=== PATIENT | female | born 1955 | race Two or more races ===

== ENCOUNTER 2020-09-25 06:30 | Day surgery (SDC) | payer OTHER ==
[~2020-09-25 06:30] MED LIST: ANASTROZOLE1 MG PO; CRESTOR10 MG PO; NORVASC5 MG PO; SYNTH PO; SYNTHROID100 MCG PO
== END 2020-09-25 17:25 | disposition home or self-care (01) ==
LOC: CIR.AMB 06:30
PROVIDERS: ATTEND Surgery
DX: D05.01 Lobular carcinoma in situ of right breast (principal); Z20.822 Contact with and (suspected) exposure to COVID-19